=== PATIENT | female | born 1980 | race Caucasian/White ===

== ENCOUNTER 2016-12-11 21:11 | Emergency (ER) | payer OTHER ==
[2016-12-11 21:18] VITALS: BP 130/85
--- NOTE | 2016-12-11 21:31 | ED Physician Documentation ---
PD HPI BACK PAIN - Stated complaint Stated Complaint: BACK PAIN - Chief complaint Chief Complaint: Back Pain - History obtained from History obtained from: Patient - History of Present Illness Timing - onset: Chronic Timing - details: Gradual onset, Still present Location: Lower Quality: Pain, Similar to prior episodes Associated symptoms: No: Fever, Weakness, Numbness, Incontinent of urine Similar symptoms before: Work up / diagnostics, Treatment, Follow up Recently seen: Not recently seen - Additional information Additional information: Patient is a 36 year old female with a history of chronic back pain. Patient states that she is supposed to get surgery on wednesday so she came out from [place] to stay with her brother until the surgery. Patient states that she left her pain medication at home and needed s prescription for her pain medication. Patient denies any difference in her pain tonight. Review of Systems Constitutional: denies: Fever, Chills, Myalgias Eyes: reports: Loss of vision, Decreased vision Nose: denies: Rhinorrhea / runny nose, Congestion Throat: denies: Sore throat Cardiac: denies: Chest pain / pressure GI: denies: Nausea, Vomiting : denies: Dysuria, Frequency, Hesitancy, Unable to Void, Incontinent Skin: denies: Rash, Lesions Musculoskeletal: reports: Back pain. denies: Extremity pain, Joint pain, Extremity swelling Neurologic: denies: Generalized weakness, Focal weakness, Numbness Immunocompromised: denies: Immunocompromised PD ED PE NORMAL - Vitals Vital signs reviewed: Yes - General General: Alert and oriented X 3, No acute distress, Well developed/nourished - HEENT HEENT: Atraumatic, PERRL - Neck Neck: Supple, no meningeal sign - Cardiac Cardiac: RRR, No murmur - Respiratory Respiratory: No respiratory distress - Abdomen Abdomen: Soft, Non distended - Derm Derm: Normal color, Warm and dry, No rash - Extremities Extremities: No deformity, Normal ROM s pain, No edema - Neuro Neuro: Alert and oriented X 3, No motor deficit, No sensory deficit, Normal speech - Psych Psych: Normal mood, Normal affect Results - Vitals Vitals: Vital Signs - 24 hr 12/11/16 21:15 Temperature 36.3 C L Heart Rate 108 H Respiratory 17 Rate Blood Pressure 130/85 H O2 Saturation 100 Oxygen O2 Source Room air PD MEDICAL DECISION MAKING - ED course Complexity details: considered differential, d/w patient ED course: Patient was seen and examined at bedside. patient was in no acute distress. Patient was made aware that a prescription for narcotics would not be written. Patient was offered other pain medications but refused and walked out of the emergency department. Departure - Departure Disposition: 01 Home, Self Care Clinical Impression: Back pain Condition: Good Instructions: ED Chronic Pain Management Follow-Up: primary,care provider [Other] - Tomorrow Comments: I am not in the practice of writing for narcotic pain medication without indication. You can call your prescribing doctor tomorrow to see if they will call in a prescription for you. You can take motrin or tylenol as needed for pain. You may return to the emergency department at any time for new, worsening or uncontrollable symptoms. Discharge Date/Time: 12/11/16 21:34
== END 2016-12-11 21:34 | disposition home or self-care (01) ==
LOC: ED 21:11
DX: M54.5 Low back pain (principal); G89.29 Other chronic pain
CPT/HCPCS: 99282; 99283